=== PATIENT | female | born 1980 | race African-American/Black ===

== ENCOUNTER 2016-05-03 09:07 | Emergency (ER) | payer BC ==
[2016-05-03 12:37] LABS: HEMATOCRIT 37.7 % (36.0-48.0); HEMOGLOBIN 11.6 g/dL (12-16); MCH 23.2 pg (26.0-34.0); MCHC 30.8 g/dL (31.0-37.0); MCV 75.4 fL (80.0-100.0); MEAN PLATELET VOLUME 9.5 fL (7.4-10.4); PLATELET COUNT 335 10x3/uL (130-400); RDW 16.6 % (11.5-14.5); WBC 4.7 10x3/uL (4.8-10.8)
[2016-05-03 13:38] LABS: LYMPHOCYTES 57 % (15-50); MONOCYTES 4 % (2-11); NEUTROPHILS 39 % (40-80); PLATELET ESTIMATE NORMAL
== END 2016-05-03 13:11 | disposition home or self-care (01) ==
LOC: D.ER 09:07
PROVIDERS: Physician Assistant Medical
DX: J06.9 Acute upper respiratory infection, unspecified (principal); I10 Essential (primary) hypertension